=== PATIENT | female | born 1985 | race American Indian/Alaskan Native ===

== ENCOUNTER 2018-04-12 13:11 | Emergency (ER) | payer MEDICAID, OTHER ==
[2018-04-12 13:11] VITALS: BMI 32.5
[2018-04-12 13:19] VITALS: BP 119/77; PULSE 75; RESP 18; TEMP 98.3; O2SAT 97
[2018-04-12] MEDS ORDERED: TDAP Vaccine 0.5 mL Syr IM ONE (13:48)
--- NOTE | 2018-04-12 13:52 | ED PDOC ---
Arrival/HPI - General Chief Complaint: Finger,Hand,&Wrist Time Seen by Provider: 04/12/18 13:40 Historian: Patient - History of Present Illness Narrative History of Present Illness (Text): 04/12/18 13:40 33 y/o F left-hand dominant, whose past medical history includes GERD and section (2004), presenting to the ED with right index finger injury. 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 She denies any current bleeding, paresthesias, loss of grasp, or numbness in the extremity. PMD: Sandie Cornelius Time/Duration: Prior to Arrival Symptom Onset: Sudden Symptom Course: Unchanged Severity Level: Mild Context: Work Past Medical History - Provider Review Nursing Documentation Reviewed: Yes - Infectious Disease Hx of Infectious Diseases: None - Gastrointestinal Hx Gastroesophageal Reflux: Yes - Psychiatric Hx Substance Use: No - Surgical History Hx Section: Yes (2004) - Anesthesia Hx Anesthesia: Yes Hx Anesthesia Reactions: No Hx Malignant Hyperthermia: No - Suicidal Assessment Feels Threatened In Home Enviroment: No Family/Social History - Physician Review Nursing Documentation Reviewed: Yes Family/Social History: No Known Family HX Smoking Status: Never Smoked Hx Alcohol Use: No Hx Substance Use: No Allergies/Home Meds Allergies/Adverse Reactions: Allergies No Known Allergies Allergy (Verified 04/12/18 13:16) Review of Systems - Physician Review All systems were reviewed & negative as marked: Yes - Review of Systems Skin: Other (Patient notes bleeding to distal tip of the palmar aspect of her right index finger.). absent: Normal Physical Exam Vital Signs Reviewed: Yes Vital Signs Temp Pulse Resp BP Pulse Ox 04/12/18 13:17 98.3 F 75 18 119/77 97 Temperature: Afebrile Blood Pressure: Normal Pulse: Regular Respiratory Rate: Normal Appearance: Positive for: Well-Appearing, Non-Toxic Pain Distress: Mild Mental Status: Positive for: Alert and Oriented X 3 - Systems Exam Head: Present: Atraumatic, Normocephalic Pupils: Present: PERRL Extroacular Muscles: Present: EOMI Conjunctiva: Present: Normal Mouth: Present: Moist Mucous Membranes Neck: Present: Normal Range of Motion Respiratory/Chest: Present: Clear to Auscultation, Good Air Exchange. No: Respiratory Distress, Accessory Muscle Use Cardiovascular: Present: Regular Rate and Rhythm, Normal S1, S2. No: Murmurs Abdomen: No: Tenderness, Distention, Peritoneal Signs Back: Present: Normal Inspection Upper Extremity: Present: Neurovascularly Intact, Other (Avulsion tear noted to distal tip of right second digit. No active bleeding. Able to abduct. ). No: Normal Inspection, Cyanosis, Edema Lower Extremity: Present: Normal Inspection, Capillary Refill < 2 s. No: Edema Neurological: Present: GCS=15, CN II-XII Intact, Speech Normal Skin: Present: Warm, Dry, Normal Color. No: Rashes Psychiatric: Present: Alert, Oriented x 3, Normal Insight, Normal Concentration Medical Decision Making ED Course and Treatment: 04/12/18 13:40 Impression:33 y/o F left-hand dominant presenting to the ED with right index fi nger injury. Differential Diagnosis included but are not limited to: Skin avulsion tear Plan: -- Boostrix Vaccine Inj -- Reassess and disposition Prior Visits: Notes and results from previous visits were reviewed. Patient was last seen in the emergency department on 08/08/17 with subjective fever, congestion, cough, sore throat, body aches and nausea since the night prior to arrival. Patient was discharged home in stable condition and given instructions for care. Progress Notes: 04/12/18 13:52 Wound care provided with encouragement to avoid direct contact with liquids. Patient advised to follow up with her PCP. She is stable for discharge. - Scribe Statement The provider has reviewed the documentation as recorded by the Scribe Renetta Strauss All medical record entries made by the Scribchris were at my direction and personally dictated by me. I have reviewed the chart and agree that the record accurately reflects my personal performance of the history, physical exam, medical decision making, and the department course for this patient. I have also personally directed, reviewed, and agree with the discharge instructions and disposition. Disposition/Present on Arrival - Present on Arrival Any Indicators Present on Arrival: No History of DVT/PE: No History of Uncontrolled Diabetes: No Urinary Catheter: No History of Decub. Ulcer: No History Surgical Site Infection Following: None - Disposition Have Diagnosis and Disposition been Completed?: Yes Diagnosis: Finger avulsion Disposition: HOME/ ROUTINE Disposition Time: 13:52 Patient Plan: Discharge Condition: IMPROVED Discharge Instructions (ExitCare): Wound Care (DC), Common Finger Injuries (DC) Prescriptions: RX: Clindamycin [Cleocin] 300 mg PO BID 5 Days #10 cap Referrals: Jennifer Rsoas MD [Medical Doctor] - [place] up with primary [facility] [place] - Follow up with primary Forms: [facility] ([place]), WORK NOTE
== END 2018-04-12 14:09 | disposition home or self-care (01) ==
LOC: ED 13:11
DX: S61.200A Unspecified open wound of right index finger without damage to nail, initial encounter (principal); W22.8XXA Striking against or struck by other objects, initial encounter; Y99.0 Civilian activity done for income or pay; Z23 Encounter for immunization